=== PATIENT | male | born 1950 | race Caucasian/White ===

== ENCOUNTER → 2016-05-27 | Outpatient (REF) | payer MEDICARE, OTHER, SELFPAY | LOC: M LAB REF 11:49 | PROVIDERS: ATTEND Internal Medicine | DX: Z11.59 Encounter for screening for other viral diseases (principal) ==

== ENCOUNTER → 2016-08-09 | Outpatient (CLI) | payer MEDICARE, OTHER ==
[~2016-08-09] VITALS: Ht 182.9 cm; Wt 95.3 kg
[~2016-08-09] MED LIST: ENAL20TA PO; LIDOCAINE 2% INJ 100 MG/5 ML SDV (FOR ANES.) As Ordered ONE; NS 1,000 ML IV SCH; OMEP40CA2 PO; PRAV10TA PO; PROPOFOL 200 MG/20 ML VIAL As Ordered ONE
--- NOTE | 2016-08-09 08:52 | ROOR ---
Patient Name: Heron Marcum Procedure Date: 08/09/2016 8:24 AM Date of : 1950 Age: 66 Room: [facility] Gender: Male Note Status: Finalized Procedure: Upper GI endoscopy + Biopsies Indications: Heartburn, Follow-up of Carrasquillo's esophagus Providers: Maykel Carlos MD Referring MD: Nury Mercedes DO Requesting Provider: Medicines: Monitored Anesthesia Care Complications: No immediate complications. Procedure: Pre-Anesthesia Assessment: - The heart rate, respiratory rate, oxygen saturations, blood pressure, adequacy of pulmonary ventilation, and response to care were monitored throughout the procedure. The Endoscope was introduced through the mouth, and advanced to the second part of duodenum. The upper GI endoscopy was accomplished without difficulty. The patient tolerated the procedure well. Findings: The Z-line was irregular and was found 35 cm from the incisors. Multiple biopsies were obtained with cold forceps for evaluation to rule out Carrasquillo's Esophagus randomly at the gastroesophageal junction. A large hiatal hernia was present. No other significant abnormalities were identified in a careful examination of the stomach. The exam of the duodenum was otherwise normal. Impression: - Z-line irregular, 35 cm from the incisors. - Large hiatal hernia. - Multiple biopsies were obtained at the gastroesophageal junction. - The examination was otherwise normal. Recommendation: - Patient has a contact number available for emergencies. The signs and symptoms of potential delayed complications were discussed with the patient. Return to normal activities tomorrow. Written discharge instructions were provided to the patient. - High fiber diet. - Discharge patient to home. - Follow an antireflux regimen. - Continue present medications. - Await pathology results. - Telephone GI clinic for pathology results in 1 week. - Return to referring physician. - The findings and recommendations were discussed with the patient's family. Maykel Carlos MD Maykel Carlos MD 08/09/2016 8:51:57 AM This report has been signed electronically. Number of Addenda: 0 Note Initiated On: 08/09/2016 8:24 AM Estimated Blood Loss: Estimated blood loss: none.
[2016-08-09 09:16] VITALS: BP 151/85
== END | disposition home or self-care (01) ==
LOC: M OPP 07:41
PROVIDERS: ATTEND Internal Medicine Gastroenterology
DX: K22.70 Barrett's esophagus without dysplasia (principal); K22.8 Other specified diseases of esophagus; K44.9 Diaphragmatic hernia without obstruction or gangrene; R12 Heartburn; I10 Essential (primary) hypertension; E78.5 Hyperlipidemia, unspecified; Z85.46 Personal history of malignant neoplasm of prostate; Z79.899 Other long term (current) drug therapy

== ENCOUNTER → 2016-11-30 | Outpatient (CLI) | payer MEDICARE ==
[~2016-11-30] MED LIST changes: -LIDOCAINE 2% INJ 100 MG/5 ML SDV (FOR ANES.) As Ordered ONE; -NS 1,000 ML IV SCH; -PRAV10TA PO; +PRAV10TA4 PO; -PROPOFOL 200 MG/20 ML VIAL As Ordered ONE
== END ==
LOC: M LAB 10:08
PROVIDERS: ATTEND Physician Assistant Medical
DX: Z85.46 Personal history of malignant neoplasm of prostate (principal)

== ENCOUNTER → 2017-11-22 | Outpatient (CLI) | payer MEDICARE ==
[2017-11-22 11:09] LABS: PROSTATIC SPECIFIC AG MONITOR < 0.01 NG/ML (< 4.0)
== END ==
LOC: M LAB 09:47
DX: C61 Malignant neoplasm of prostate (principal)
CPT/HCPCS: 84153

== ENCOUNTER → 2018-12-12 | Outpatient (CLI) | payer MEDICARE | LOC: M LAB 09:22 | PROVIDERS: ATTEND Urology | DX: C61 Malignant neoplasm of prostate (principal) ==

== ENCOUNTER → 2019-12-19 | Outpatient (CLI) | payer MEDICARE ==
[~2019-12-19] MED LIST changes: -ENAL20TA PO; +ENAL20TA11 PO; -OMEP40CA2 PO; +OMEP40CA97 PO
== END ==
LOC: M LAB 09:15
PROVIDERS: ATTEND Urology
DX: Z85.46 Personal history of malignant neoplasm of prostate (principal)

== ENCOUNTER → 2020-04-14 | Outpatient (CLI) | payer SELFPAY | LOC: M LABSMTC 15:00 | PROVIDERS: ATTEND Pediatrics | DX: Z20.828 Contact with and (suspected) exposure to other viral communicable diseases (principal) ==

== ENCOUNTER → 2020-12-09 | Outpatient (CLI) | payer MEDICARE ==
[~2020-12-09] MED LIST changes: +OMEP40CA4 PO; -OMEP40CA97 PO
== END ==
LOC: M LAB 10:39
PROVIDERS: ATTEND Physician Assistant
DX: Z85.46 Personal history of malignant neoplasm of prostate (principal)